=== PATIENT | female | born 1985 | race Caucasian/White ===

== ENCOUNTER 2016-08-28 02:49 | Emergency (ER) | payer SELFPAY ==
[~2016-08-28] VITALS: Ht 182.9 cm; Wt 182.8 kg
[2016-08-28] MEDS ORDERED: KETOROLAC TROMETHAMINE 30 MG/ML INJ. IV ONE (03:45)
[2016-08-28 03:51] LABS: BASO # 0.1 x10^3/uL (0.0-0.2); BASO % 1 % (0-3); EOS % 2 % (0-3); HEMOGLOBIN 12.8 g/dL (12.0-15.5); LYMPH # 2.4 x10^3/uL (1.0-4.8); LYMPH % 30 % (24-48); MEAN CORPUSCULAR HEMOGLOBIN 28 pg (25-35); MEAN CORPUSCULAR HGB CONC 33 g/dL (31-37); MEAN CORPUSCULAR VOLUME 86 fL (79-100); MONO % 5 % (0-9); NEUT % 62 % (31-73); PLATELET COUNT 251 x10^3/uL (140-400); RED BLOOD COUNT 4.56 x10^6/uL (3.50-5.40); WHITE BLOOD COUNT 8.1 x10^3/uL (4.0-11.0)
[2016-08-28 03:57] VITALS: BP 149/93
[2016-08-28 04:07] LABS: CALCIUM 9.5 mg/dL (8.5-10.1); CREATININE 0.8 mg/dL (0.6-1.0); GFR 84.2; POTASSIUM 4.1 mmol/L (3.5-5.1)
--- NOTE | 2016-08-28 04:58 | PHYS DOC ---
Past Medical History Past Medical History: Asthma, Migraines Additional Past Medical Histor: HASHIMOTOS, VERTIGO Past Surgical History: Cholecystectomy Alcohol Use: None Drug Use: None Adult General Chief Complaint Chief Complaint: CHEST PAIN HPI HPI Patient is a 31 year old female who presents with chest pain. 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 She states she experienced sharp substernal chest pain which was nonradiating. Reports shortness of breath and worsening of symptoms with deep breathing. Reports occasional dry cough. Denies fevers or chills, nausea, diaphoresis, lower extremity pain or swelling. Reports previous history of similar symptoms and was diagnosed with pleurisy. States her employer wanted her to come to the emergency department for evaluation. She has history of asthma and Lali's. Denies history of CAD, DVT/PE. Does not take control. She is an active everyday smoker. Review of Systems Review of Systems Constitutional: Denies fever or chills Eyes: Denies change in visual acuity HENT: Denies nasal congestion or sore throat Respiratory: Reports cough and shortness of breath Cardiovascular: Reports chest pain, denies edema GI: Denies abdominal pain, nausea, vomiting Musculoskeletal: Denies back pain or joint pain Integument: Denies rash or skin lesions Neurologic: Denies headache, focal weakness or sensory changes Current Medications Current Medications Current Medications Medications (Trade) Dose Ordered Sig/Bereket Start Time Stop Time Status Last Admin Dose Admin Ketorolac Tromethamine (Toradol) 30 mg 1X ONCE 08/28/16 03:45 08/28/16 03:46 DC 08/28/16 03:50 30 MG Allergies Allergies Allergies Coded Allergies Type Severity Reaction Last Updated Verified Sulfa (Sulfonamide Antibiotics) Allergy Unknown 08/28/16 Yes latex Allergy Unknown 08/28/16 Yes Physical Exam Physical Exam Constitutional: Morbidly obese, no acute distress, non-toxic appearance. HENT: Normocephalic, atraumatic, bilateral external ears normal, oropharynx moist, nose normal. Eyes: conjunctiva normal, no discharge. Neck: supple, no stridor. Cardiovascular: RRR, no murmurs, no edema. Lungs & Thorax: LCTAB, no wheezing, no respiratory distress. Oxygen saturation 100% on room air Abdomen: soft, nontender, nondistended. Skin: Warm, dry, no erythema, no rash. Back: No tenderness. Extremities: No tenderness, no edema. No calf tenderness or swelling Neurologic: Alert and oriented X 3, no focal deficits noted. Psychologic: Affect normal, judgement normal, mood normal. Current Patient Data Vital Signs Vital Signs Date Time Temp Pulse Resp B/P Pulse Ox O2 Delivery O2 Flow Rate FiO2 08/28/16 03:57 80 16 149/93 97 Room Air 08/28/16 02:58 97.8 97.8 Lab Values Laboratory Tests Test 08/28/16 03:04 08/28/16 03:18 POC Urine HCG, Qualitative Hcg negative (Negative) White Blood Count 8.1x10^3/uL (4.0-11.0) Red Blood Count 4.56x10^6/uL (3.50-5.40) Hemoglobin 12.8g/dL (12.0-15.5) Hematocrit 39.0% (36.0-47.0) Mean Corpuscular Volume 86fL (79-100) Mean Corpuscular Hemoglobin 28pg (25-35) Mean Corpuscular Hemoglobin Concent 33g/dL (31-37) Red Cell Distribution Width 14.0% (11.5-14.5) Platelet Count 251x10^3/uL (140-400) Neutrophils (%) (Auto) 62% (31-73) Lymphocytes (%) (Auto) 30% (24-48) Monocytes (%) (Auto) 5% (0-9) Eosinophils (%) (Auto) 2% (0-3) Basophils (%) (Auto) 1% (0-3) Neutrophils # (Auto) 5.0x10^3uL (1.8-7.7) Lymphocytes # (Auto) 2.4x10^3/uL (1.0-4.8) Monocytes # (Auto) 0.4x10^3/uL (0.0-1.1) Eosinophils # (Auto) 0.2x10^3/uL (0.0-0.7) Basophils # (Auto) 0.1x10^3/uL (0.0-0.2) Sodium Level 142mmol/L (136-145) Potassium Level 4.1mmol/L (3.5-5.1) Chloride Level 104mmol/L (98-107) Carbon Dioxide Level 28mmol/L (21-32) Anion Gap 10 (6-14) Blood Urea Nitrogen 12mg/dL (7-20) Creatinine 0.8mg/dL (0.6-1.0) Estimated GFR (Cockcroft-Gault) 84.2 Glucose Level 88mg/dL (70-99) Calcium Level 9.5mg/dL (8.5-10.1) Troponin I Quantitative < 0.017ng/mL (0.000-0.055) Laboratory Tests 08/28/16 03:18 Laboratory Tests 08/28/16 03:18 EKG EKG interpreted by me: NSR rate 85, no acute ST/T wave changes, normal intervals, no ectopy.[] Radiology/Procedures Radiology/Procedures CXR: interpreted by me: no cardiomegaly, no infiltrate, no pneumothorax, diaphragmatic flattening[] Course & Med Decision Making Course & Med Decision Making Pertinent Labs and Imaging studies reviewed. (See chart for details) The patient presents with chest pain. Improved with treatment here. Labs, EKG, chest x-ray showed no acute process. HEART score is 0, low risk, PERC is negative. Recommended supportive care with Tylenol or ibuprofen. Follow-up with a primary care physician if not improving in 2-3 days. Return to the emergency department for severe shortness of breath or chest pain, any otherwise worsening condition. The patient is discharged home today in stable condition. [] Dragon Disclaimer Dragon Disclaimer This electronic medical record was generated, in whole or in part, using a voice recognition dictation system. Departure Departure Impression: Primary Impression: Chest pain Disposition: 01 HOME, SELF-CARE Condition: STABLE Referrals: KEVEN CLEMENTS MD Patient Instructions: Chest Pain (Nonspecific), [id number] Additional Instructions: You were seen in the emergency department today for chest pain. Labs, EKG, & chest x-ray did not show a serious cause of symptoms. Please rest, take tylenol or ibuprofen for pain. Follow up with Dr. Clements in the primary care clinic in 2-3 days if symptoms continue. Come back for severe chest pain or shortness of breath, or any otherwise worsening condition. FAITH KIM MD Aug 28, 2016 04:58
--- NOTE | 2016-08-28 06:13 | EKG ---
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
--- NOTE | 2016-08-28 07:55 | RAD ---
PA and lateral chest radiographs 08/28/2016. Clinical History: Chest pain.. PA and lateral digital radiographs of the chest were obtained. No previous studies are available for comparison. The cardiac and mediastinal silhouettes are within normal limits in size and configuration. No pulmonary infiltrate is seen. No pleural effusion or pneumothorax is noted. The osseous structures are grossly intact. Impression: No radiographic evidence of active cardiopulmonary disease.
== END 2016-08-28 05:24 | disposition home or self-care (01) ==
LOC: ER 02:49
DX: R07.2 Precordial pain (principal); R05 Cough; R06.02 Shortness of breath; E66.01 Morbid (severe) obesity due to excess calories; J45.909 Unspecified asthma, uncomplicated; F17.200 Nicotine dependence, unspecified, uncomplicated; G43.909 Migraine, unspecified, not intractable, without status migrainosus; E06.3 Autoimmune thyroiditis; Z88.2 Allergy status to sulfonamides; Z91.040 Latex allergy status; Z68.43 Body mass index [BMI] 50.0-59.9, adult
CPT/HCPCS: 36415; 71020; 80048; 81025; 84484; 85027; 93005; 96374; 99285; J1885

== ENCOUNTER 2020-09-01 17:00 | Emergency (ER) | payer OTHER ==
[~2020-09-01] VITALS: Ht 182.9 cm; Wt 216.0 kg
[2020-09-01] MEDS ORDERED: methylPREDNISolone SOD SUCC PF 125 MG/2 ML VIAL. IV ONE (19:00)
[2020-09-01] MEDS ORDERED: FAMOTIDINE 20 MG/2 ML VIAL IVP ONE (19:00)
[2020-09-01] MEDS ORDERED: diphenhydrAMINE 50 MG/ML VIAL IVP ONE (19:00)
--- NOTE | 2020-09-01 19:01 | PHYS DOC ---
Past Medical History Past Medical History: Asthma, Migraines Additional Past Medical Histor: HASHIMOTOS, VERTIGO Past Surgical History: Cholecystectomy Smoking Status: Never Smoker Alcohol Use: None Drug Use: None General Adult EDM: Chief Complaint: SHORTNESS OF BREATH HPI: HPI: Patient is a 35 year old female who presented to ER due to trouble breathing and the symptoms started around 3:30 PM today. Patient says she just turned on her AC unit for the first time today. Then later she received a packet that delivered to her. Patient says she just picked up the packet and left inside the house, did not open it. Patient took zyrtec, 50 mg benadryl immediately. She said she felt pressure in her throat, itching all over, having shortness of air. Patient said she is feeling better now. Review of Systems: Review of Systems: Constitutional: Denies fever or chills. [] Eyes: Denies change in visual acuity. [] HENT: Denies nasal congestion or sore throat. Positive for swelling in her throat Respiratory: Denies cough, positive for shortness of breath. [] Cardiovascular: Denies chest pain or edema. [] GI: Denies abdominal pain, nausea, vomiting, bloody stools or diarrhea. [] : Denies dysuria. [] Musculoskeletal: Denies back pain or joint pain. [] Integument: Positive for itching, rash. Neurologic: Denies headache, focal weakness or sensory changes. [] Endocrine: Denies polyuria or polydipsia. [] Lymphatic: Denies swollen glands. [] Psychiatric: Denies depression or anxiety. [] Heart Score: C/O Chest Pain: N/A Risk Factors: Risk Factors: DM, Current or recent (<one month) smoker, HTN, HLP, family history of CAD, obesity. Risk Scores: Score 0 - 3: 2.5% MACE over next 6 weeks - Discharge Home Score 4 - 6: 20.3% MACE over next 6 weeks - Admit for Clinical Observation Score 7 - 10: 72.7% MACE over next 6 weeks - Early Invasive Strategies Current Medications: Current Medications Medications (Trade) Dose Ordered Sig/Bereket Start Time Stop Time Status Last Admin Dose Admin Diphenhydramine HCl (Benadryl) 25 mg 1X ONCE 09/01/20 19:00 09/01/20 19:01 Famotidine (Pepcid Vial) 20 mg 1X ONCE 09/01/20 19:00 09/01/20 19:01 Methylprednisolone Sodium Succinate (SOLU-Medrol 125MG VIAL) 125 mg 1X ONCE 09/01/20 19:00 09/01/20 19:01 Allergies: Allergies: Allergies Coded Allergies Type Severity Reaction Last Updated Verified Sulfa (Sulfonamide Antibiotics) Allergy Unknown 08/28/16 Yes latex Allergy Unknown 08/28/16 Yes Physical Exam: PE: Constitutional: Well developed, well nourished, no acute distress, non-toxic appearance. [] HENT: Normocephalic, atraumatic, bilateral external ears normal, oropharynx moist, no oral exudates, nose normal. [] Eyes: PERRLA, EOMI, conjunctiva normal, no discharge. [] Neck: Normal range of motion, no tenderness, supple, no stridor. [] Cardiovascular:Heart rate regular rhythm, no murmur [] Lungs & Thorax: Bilateral breath sounds clear to auscultation [] Abdomen: Bowel sounds normal, soft, no tenderness, no masses, no pulsatile m asses. [] Skin: Warm, dry, no erythema, no rash. [] Back: No tenderness, no CVA tenderness. [] Extremities: No tenderness, no cyanosis, no clubbing, ROM intact, no edema. [] Neurologic: Alert and oriented X 3, normal motor function, normal sensory function, no focal deficits noted. [] Psychologic: Affect normal, judgement normal, mood normal. [] EKG: EKG: [] Radiology/Procedures: Radiology/Procedures: [][facility] [address] [place] [address] IMAGING REPORT Signed PATIENT: GRISELDA ANGEL ACCOUNT: [id number] : 1985 LOCATION: ER AGE: 35 SEX: F EXAM STATUS: REG ER ORD. PHYSICIAN: RAUL OLIVEIRA DO REASON: soa, PROCEDURE: CHEST AP ONLY EXAM: CHEST ONE VIEW. HISTORY: Shortness of breath. COMPARISON: 08/28/2016. FINDINGS: A frontal view of the chest is obtained. There are no confluent infiltrates. There is no pneumothorax or pleural effusion. The heart is not enlarged. IMPRESSION: 1. No confluent infiltrates. Electronically signed by: Raimundo Ellis MD (09/01/2020 8:20 PM) [facility] DICTATED and SIGNED BY: ASHLEY ELLIS MD DATE: 09/01/20 [id number] 0 Course & Med Decision Making: Course & Med Decision Making Pertinent Labs and Imaging studies reviewed. (See chart for details) Patient is a 35-year-old female who presented to ER due to itchy and rash, trouble breathing after she turned on her AC for the first time this year. Patient mostly have some form of allergic reaction. Patient was given medications in the ED, she felt much better. Patient was discharged in stable condition. Dragon Disclaimer: Dragon Disclaimer: This electronic medical record was generated, in whole or in part, using a voice recognition dictation system. Departure Departure Impression: Primary Impression: Allergy Disposition: HOME / SELF CARE / HOMELESS Condition: STABLE Referrals: TACHO GARCIA DO (PCP) Patient Instructions: Allergies, Generic Additional Instructions: Thank you for visiting our Emergency Department. We appreciate you trusting us with your care. If any additional problems come up don't hesitate to return to visit us. Please follow up with your primary care provider so they can plan additional care if needed and know about the problem that you had. If symptoms worsen come back to the Emergency Department. Any concerning symptoms that start such as chest pain, shortness of air, weakness or numbness on one side of the body, running high fevers or any other concerning symptoms return to the ER. Scripts Famotidine (PEPCID) 20 Mg Tablet 20 MG PO HS for 5 Days, #5 TAB Prov: RAUL OLIVEIRA DO 09/01/20 Prednisone (PREDNISONE) 20 Mg Tablet 1 TAB PO DAILY, #5 TAB Prov: RAUL OLIVEIRA DO 09/01/20 RAUL OLIVEIRA DO Sep 01, 2020 19:01
--- NOTE | 2020-09-01 20:22 | RAD ---
EXAM: CHEST ONE VIEW. HISTORY: Shortness of breath. COMPARISON: 08/28/2016. FINDINGS: A frontal view of the chest is obtained. There are no confluent infiltrates. There is no pneumothorax or pleural effusion. The heart is not en larged. IMPRESSION: 1. No confluent infiltrates. Electronically signed by: Raimundo Ellis MD (09/01/2020 8:20 PM) [facility]
[2020-09-01] MEDS ORDERED: PRED20TA PO (20:51)
[2020-09-01] MEDS ORDERED: FAMO-63 PO (20:51)
[2020-09-01 21:00] VITALS: BP 144/63
== END 2020-09-01 21:19 | disposition home or self-care (01) ==
LOC: ER 17:00
DX: R60.0 Localized edema (principal); T45.0X5A Adverse effect of antiallergic and antiemetic drugs, initial encounter; L29.9 Pruritus, unspecified; R21 Rash and other nonspecific skin eruption; J45.909 Unspecified asthma, uncomplicated; G43.909 Migraine, unspecified, not intractable, without status migrainosus; Z88.2 Allergy status to sulfonamides; Z91.040 Latex allergy status; Z90.49 Acquired absence of other specified parts of digestive tract; Y92.89 Other specified places as the place of occurrence of the external cause
CPT/HCPCS: 71045; 81025; 96374; 96375; 99284; J1200; J2930; J3490

== ENCOUNTER 2020-09-23 13:35 | Emergency (ER) | payer OTHER ==
[~2020-09-23] VITALS: Ht 182.9 cm; Wt 217.7 kg
[~2020-09-23 13:35] MED LIST: FAMO-63 PO; PRED20TA PO
[2020-09-23 14:20] LABS: BASO # 0.1 x10^3/uL (0.0-0.2); BASO % 1 % (0-3); EOS # 0.2 x10^3/uL (0.0-0.7); EOS % 3 % (0-3); HEMATOCRIT 37.1 % (36.0-47.0); HEMOGLOBIN 11.9 g/dL (12.0-15.5); LYMPH # 2.2 x10^3/uL (1.0-4.8); LYMPH % 35 % (24-48); MEAN CORPUSCULAR HEMOGLOBIN 25 pg (25-35); MEAN CORPUSCULAR HGB CONC 32 g/dL (31-37); MEAN CORPUSCULAR VOLUME 77 fL (79-100); MONO # 0.3 x10^3/uL (0.0-1.1); MONO % 6 % (0-9); NEUT # 3.5 x10^3/uL (1.8-7.7); NEUT % 56 % (31-73); PLATELET COUNT 223 x10^3/uL (140-400); RED BLOOD COUNT 4.84 x10^6/uL (3.50-5.40); RED CELL DISTRIBUTION WIDTH 15.7 % (11.5-14.5); WHITE BLOOD COUNT 6.2 x10^3/uL (4.0-11.0)
[2020-09-23 14:30] LABS: CALCIUM 8.6 mg/dL (8.5-10.1); CREATININE 0.8 mg/dL (0.6-1.0); GFR 82.1
--- NOTE | 2020-09-23 14:33 | RAD ---
Single AP view of the chest. Comparison: 09/01/2020. Indication: Chest Pain Findings: The heart is enlarged but stable. There is no pneumothorax or effusion. No air space or interstitial disease. Impression: 1. No acute cardiopulmonary process. Electronically signed by: Marbin Gutierrez MD (09/23/2020 2:31 PM) [id number]
[2020-09-23 14:35] LABS: ALBUMIN 3.3 g/dL (3.4-5.0); ALBUMIN/GLOBULIN RATIO 0.8 (1.0-1.7); MAGNESIUM 1.8 mg/dL (1.8-2.4); TOTAL BILIRUBIN 0.4 mg/dL (0.2-1.0); TOTAL PROTEIN 7.2 g/dL (6.4-8.2)
--- NOTE | 2020-09-23 15:15 | PHYS DOC ---
Past Medical History Past Medical History: Asthma, Migraines, Other Additional Past Medical Histor: HASHIMOTOS,VERTIGO,OBESITY Past Surgical History: Cholecystectomy Smoking Status: Never Smoker Alcohol Use: Rarely Drug Use: None General Adult EDM: Chief Complaint: CHEST PAIN HPI: HPI: Patient is a 35 year old female who presented to ER for evaluation of left- sided chest pain that radiates to her left shoulder started about 3 hours ago. Patient denies any cough or fever, no trouble breathing. Patient denies any nausea vomiting, no abdominal pain. Patient denies any family history of blood clot disorder. Patient denies any recent travel or operation. Patient had no history of diabetic. Patient does have family history of coronary disease. Review of Systems: Review of Systems: Constitutional: Denies fever or chills. [] Eyes: Denies change in visual acuity. [] HENT: Denies nasal congestion or sore throat. [] Respiratory: Denies cough or shortness of breath. [] Cardiovascular: Positive for chest pain, no edema GI: Denies abdominal pain, nausea, vomiting, bloody stools or diarrhea. [] : Denies dysuria. [] Musculoskeletal: Denies back pain or joint pain. [] Integument: Denies rash. [] Neurologic: Denies headache, focal weakness or sensory changes. [] Endocrine: Denies polyuria or polydipsia. [] Lymphatic: Denies swollen glands. [] Psychiatric: Denies depression or anxiety. [] Heart Score: C/O Chest Pain: Yes HEART Score for Chest Pain: HEART Score for Chest Pain Response (Comments) Value History Slighlty/Non-Suspicious 0 ECG Normal 0 Age < 45 0 Risk Factors 1 or 2 Risk Factors 1 Troponin < Normal Limit 0 Total 1 Risk Factors: Risk Factors: DM, Current or recent (<one month) smoker, HTN, HLP, family history of CAD, obesity. Risk Scores: Score 0 - 3: 2.5% MACE over next 6 weeks - Discharge Home Score 4 - 6: 20.3% MACE over next 6 weeks - Admit for Clinical Observation Score 7 - 10: 72.7% MACE over next 6 weeks - Early Invasive Strategies Allergies: Allergies: Allergies Coded Allergies Type Severity Reaction Last Updated Verified Sulfa (Sulfonamide Antibiotics) Allergy Unknown 08/28/16 Yes latex Allergy Unknown 08/28/16 Yes Physical Exam: PE: Constitutional: Well developed, well nourished, no acute distress, non-toxic appearance. Morbidly obese HENT: Normocephalic, atraumatic, bilateral external ears normal, oropharynx moist, no oral exudates, nose normal. [] Eyes: PERRLA, EOMI, conjunctiva normal, no discharge. [] Neck: Normal range of motion, no tenderness, supple, no stridor. [] Cardiovascular:Heart rate regular rhythm, no murmur [] Lungs & Thorax: Bilateral breath sounds clear to auscultation [] Abdomen: Bowel sounds normal, soft, no tenderness, no masses, no pulsatile masses. [] Skin: Warm, dry, no erythema, no rash. [] Back: No tenderness, no CVA tenderness. [] Extremities: No tenderness, no cyanosis, no clubbing, ROM intact, no edema. [] Neurologic: Alert and oriented X 3, normal motor function, normal sensory function, no focal deficits noted. [] Psychologic: Affect normal, judgement normal, mood normal. [] Current Patient Data: Labs: Laboratory Tests Test 09/23/20 14:10 White Blood Count 6.2 x10^3/uL (4.0-11.0) Red Blood Count 4.84 x10^6/uL (3.50-5.40) Hemoglobin 11.9 g/dL (12.0-15.5) L Hematocrit 37.1 % (36.0-47.0) Mean Corpuscular Volume 77 fL (79-100) L Mean Corpuscular Hemoglobin 25 pg (25-35) Mean Corpuscular Hemoglobin Concent 32 g/dL (31-37) Red Cell Distribution Width 15.7 % (11.5-14.5) H Platelet Count 223 x10^3/uL (140-400) Neutrophils (%) (Auto) 56 % (31-73) Lymphocytes (%) (Auto) 35 % (24-48) Monocytes (%) (Auto) 6 % (0-9) Eosinophils (%) (Auto) 3 % (0-3) Basophils (%) (Auto) 1 % (0-3) Neutrophils # (Auto) 3.5 x10^3/uL (1.8-7.7) Lymphocytes # (Auto) 2.2 x10^3/uL (1.0-4.8) Monocytes # (Auto) 0.3 x10^3/uL (0.0-1.1) Eosinophils # (Auto) 0.2 x10^3/uL (0.0-0.7) Basophils # (Auto) 0.1 x10^3/uL (0.0-0.2) Sodium Level 140 mmol/L (136-145) Potassium Level 4.0 mmol/L (3.5-5.1) Chloride Level 105 mmol/L (98-107) Carbon Dioxide Level 26 mmol/L (21-32) Anion Gap 9 (6-14) Blood Urea Nitrogen 9 mg/dL (7-20) Creatinine 0.8 mg/dL (0.6-1.0) Estimated GFR (Cockcroft-Gault) 82.1 BUN/Creatinine Ratio 11 (6-20) Glucose Level 131 mg/dL (70-99) H Calcium Level 8.6 mg/dL (8.5-10.1) Magnesium Level 1.8 mg/dL (1.8-2.4) Total Bilirubin 0.4 mg/dL (0.2-1.0) Aspartate Amino Transferase (AST) 33 U/L (15-37) Alanine Aminotransferase (ALT) 59 U/L (14-59) Alkaline Phosphatase 75 U/L (46-116) Troponin I Quantitative < 0.017 ng/mL (0.000-0.055) WY-Wxn-O-Type Natriuretic Peptide 15 pg/mL (0-124) Total Protein 7.2 g/dL (6.4-8.2) Albumin 3.3 g/dL (3.4-5.0) L Albumin/Globulin Ratio 0.8 (1.0-1.7) L Lipase 149 U/L (73-393) Laboratory Tests 09/23/20 14:10 Laboratory Tests 09/23/20 14:10 Vital Signs: Vital Signs Date Time Temp Pulse Resp B/P (MAP) Pulse Ox O2 Delivery O2 Flow Rate FiO2 09/23/20 13:39 98.4 98 20 163/81 (108) 97 Room Air 98.4 EKG: EKG: EKG was done at 1343, heart rate 102 beats per minute. Sinus tachycardia, no ST segment elevation. Radiology/Procedures: Radiology/Procedures: [][facility] [address] [place] [address] IMAGING REPORT Signed PATIENT: GRISELDA ANGEL ACCOUNT: [id number] : 1985 LOCATION: ER AGE: 35 SEX: F EXAM STATUS: REG ER ORD. PHYSICIAN: RAUL OLIVEIRA DO REASON: CHEST PAIN PROCEDURE: PORTABLE CHEST 1V Single AP view of the chest. Comparison: 09/01/2020. Indication: Chest Pain Findings: The heart is enlarged but stable. There is no pneumothorax or effusion. No air space or interstitial disease. Impression: 1. No acute cardiopulmonary process. Electronically signed by: Marbin Gutierrez MD (09/23/2020 2:31 PM) [id number] DICTATED and SIGNED BY: MARBIN GUTIERREZ MD DATE: 09/23/20 [id number] [address] [address] IMAGING REPORT Signed PATIENT: GRISELDA ANGEL ACCOUNT: [id number] : 1985 LOCATION: ER AGE: 35 SEX: F EXAM STATUS: REG ER ORD. PHYSICIAN: RAUL OLIVEIRA DO REASON: chest pain, soa, evaluation for PE PROCEDURE: CT ANGIOGRAPHY CHEST EXAMINATION: CTA CHEST CLINICAL HISTORY: Chest pain, shortness of breath, evaluation for PE Technique: Spiral CT acquisition of the chest from the thoracic inlet to the upper abdomen following IV contrast with coronal and sagittal reformatted images also provided for review. 3D maximum intensity projection images also performed. CT Dose Reduction Employed: One or more of the following individualized dose reduction techniques were utilized for this examination: 1. Automated exposure control 2. Adjustment of the mA and/or kV according to patient size 3. Use of iterative reconstruction technique. Comparison: Chest radiograph same day FINDINGS: Significantly suboptimal opacification of the pulmonary arterial system limits evaluation. Pulmonary Vasculature: No evidence of main or definite lobar pulmonary arterial thrombus.. Remainder of the pulmonary arterial system otherwise suboptimally evaluated. Lung Parenchyma, Pleura, and Airways: Questionable mild interstitial edema. No focal consolidation. No pleural effusion. Central airways patent. Lower Neck, Lymph Nodes, and Mediastinum: No evidence of discrete nodule in the partially visualized thyroid gland. No mediastinal, hilar, or axillary lymphadenopathy. Heart, Pericardium, and Thoracic Vessels: Cardiac chambers normal in size. No pericardial effusion. Thoracic aorta within normal limits. No coronary artery atherosclerotic calcifications are noted, although the study is not optimized for coronary assessment. Bones and Soft Tissues: Mild degenerative changes in the thoracic spine. Upper Abdomen: Diffuse hypoattenuation of the hepatic parenchyma, compatible with steatosis. Cholecystectomy. IMPRESSION: No evidence of main or definite lobar pulmonary embolus on significantly limited evaluation as described. Questionable mild interstitial edema. Electronically signed by: Judah Teixeira DO (09/23/2020 3:49 PM) [facility] DICTATED and SIGNED BY: JUDAH TEIXEIRA DO DATE: 09/23/20 [id number] 0 Course & Med Decision Making: Course & Med Decision Making Pertinent Labs and Imaging studies reviewed. (See chart for details) Patient is a 35-year-old female who presented to ER due to chest pain, EKG and lab work did not show any acute problem. CT scan of her chest did not show any acute problem, no PE. Patient will be discharged home, she will need to follow- up with her family physician for outpatient evaluation and treatment. Patient is amenable to plan of care. Annabella Disclaimer: Annabella Disclaimer: This electronic medical record was generated, in whole or in part, using a voice recognition dictation system. Departure Departure Impression: Primary Impression: Chest pain Disposition: HOME / SELF CARE / HOMELESS Condition: STABLE Referrals: TACHO GARCIA DO (PCP) Follow-up with your family doctor for outpatient evaluation this week. Patient Instructions: Chest Pain (Nonspecific) Additional Instructions: Thank you for visiting our Emergency Department. We appreciate you trusting us with your care. If any additional problems come up don't hesitate to return to visit us. Please follow up with your primary care provider so they can plan additional care if needed and know about the problem that you had. If symptoms worsen come back to the Emergency Department. Any concerning symptoms that start such as chest pain, shortness of air, weakness or numbness on one side of the body, running high fevers or any other concerning symptoms return to the ER. RAUL OLIVEIRA DO September 23, 2020 15:15
[2020-09-23] MEDS ORDERED: CONTRAST GIVEN. MC PRN (15:30)
[2020-09-23] MEDS: IOHEXOL 350 MG/ML 100 ML VIAL. IV ONE (15:33)
--- NOTE | 2020-09-23 15:51 | RAD ---
EXAMINATION: CTA CHEST CLINICAL HISTORY: Chest pain, shortness of breath, evaluation for PE Technique: Spiral CT acquisition of the chest from the thoracic inlet to the upper abdomen following IV contrast with coronal and sagittal reformatted images also provided for review. 3D maximum intensi ty projection images also performed. CT Dose Reduction Employed: One or more of the following individualized dose reduction techniques wer e utilized for this examination: 1. Automated exposure control 2. Adjustment of the mA and/or kV ac cording to patient size 3. Use of iterative reconstruction technique. Comparison: Chest radiograph same day FINDINGS: Significantly suboptimal opacification of the pulmonary arterial system limits evaluation. Pulmonary Vasculature: No evidence of main or definite lobar pulmonary arterial thrombus.. Remainder of the pulmonary arterial system otherwise suboptimally evaluated. Lung Parenchyma, Pleura, and Airways: Questionable mild interstitial edema. No focal consolidation. N o pleural effusion. Central airways patent. Lower Neck, Lymph Nodes, and Mediastinum: No evidence of discrete nodule in the partially visualized thyroid gland. No mediastinal, hilar, or axillary lymphadenopathy. Heart, Pericardium, and Thoracic Vessels: Cardiac chambers normal in size. No pericardial effusion. T horacic aorta within normal limits. No coronary artery atherosclerotic calcifications are noted, alth ough the study is not optimized for coronary assessment. Bones and Soft Tissues: Mild degenerative changes in the thoracic spine. Upper Abdomen: Diffuse hypoattenuation of the hepatic parenchyma, compatible with steatosis. Cholecys tectomy. IMPRESSION: No evidence of main or definite lobar pulmonary embolus on significantly limited evaluation as descri bed. Questionable mild interstitial edema. Electronically signed by: Judah Chu DO (09/23/2020 3:49 PM) [facility]
--- NOTE | 2020-09-23 15:55 | EKG ---
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
[2020-09-23 16:46] VITALS: BP 141/87
== END 2020-09-23 17:00 | disposition home or self-care (01) ==
LOC: ER 13:35
DX: R07.89 Other chest pain (principal); M25.512 Pain in left shoulder; Z88.2 Allergy status to sulfonamides; Z91.040 Latex allergy status
CPT/HCPCS: 36415; 71045; 71275; 80053; 83690; 83735; 83880; 84484; 85025; 93005; 99285; Q9967